=== PATIENT | male | born 1950 | race Caucasian/White ===

== ENCOUNTER → 2018-07-28 07:51 | Outpatient (CLI) | payer MEDICARE, BC | END | disposition home or self-care (01) | LOC: D.US 07:51 | DX: Z87.891 Personal history of nicotine dependence (principal) ==

== ENCOUNTER 2019-02-26 07:49 | Day surgery (SDC) | payer MEDICARE, BC ==
[2019-02-25 12:08] LABS: HEMATOCRIT 44.9 % (42.0-54.0); HEMOGLOBIN 15.9 g/dL (13.5-17.5); MCH 31.5 pg (26.0-34.0); MCHC 35.4 g/dL (31.0-37.0); MCV 88.9 fL (80.0-100.0); MEAN PLATELET VOLUME 9.8 fL (7.4-10.4); RBC 5.05 10x6/uL (4.20-6.10); RDW 12.5 % (11.5-14.5); WBC 9.4 10x3/uL (4.8-10.8)
[~2019-02-26] VITALS: Ht 180.3 cm; Wt 99.8 kg
[~2019-02-26 07:49] MED LIST: CYCLOBENZAPRINE10 MG PO; FLOMAX0.4 MG PO; HYDROCODON-ACE1 EA10 PO; PROSCAR5 MG PO
[2019-02-26 08:48] VITALS: BP 132/80; Ht 180.3 cm; Wt 99.8 kg
[2019-02-26] MEDS ORDERED: PERCOCET 10-321 EAC1 PO (12:02)
[2019-02-26] MEDS ORDERED: DURICEF500 MG PO (12:02)
--- NOTE | 2019-02-26 13:15 | OP ---
PATIENT NAME: IMTIAZ BAZAN MEDICAL RECORD: [id number] :51 LOCATION:[facility] ADMISSION DATE: SURGEON: PAVEL ESQUEDA DO DATE OF OPERATION: 02/26/2019 PROCEDURE PERFORMED: Right index and middle finger A1 petty release. PREOPERATIVE DIAGNOSIS: Trigger finger, right middle and index finger. POSTOPERATIVE DIAGNOSIS: Trigger finger, right middle and index finger. INDICATIONS: Mr. Bazan is a 69-year-old male who has had trigger fingers in the past. He has tried injections in the right index and middle finger to no avail. He is tired of dealing with them and wanted something done surgically. I informed him that we could do the release and he would be at risk for infection, bleeding, damage to nerves in the area of the vessels, need for further surgery, and he was okay with that and signed the consent. SURGEON: Pavel Esqueda DO DESCRIPTION OF PROCEDURE: The patient was taken to the operative suite, laid in supine position, given general anesthetic and 2 grams Ancef. Right upper extremity was prepped and draped in sterile fashion. Timeout was performed, everyone was in agreement of the correct side, site, patient and procedure. The right upper extremity was then exsanguinated with an Esmarch. Tourniquet was inflated to 250 mmHg, was up for 18 minutes. The incision was then made over the A1 petty of the long finger first. Careful dissection was made down after the incision through the skin bluntly with a Ragnell to the A1 petty. A1 petty was then released and the flexor tendons were pulled out through the incision, it was not binding on anything and no tenosynovitis. The same was repeated on the index finger and once we got good release, the tourniquet was let down. The bleeding was coagulated with the bipolar at that time. The incision was then closed with 4-0 nylon with a horizontal mattress fashion. Adaptic, 4 x 4's, Kerlix, and Coban were then placed on the hand lightly. He was awakened and taken to recovery in stable condition. BLOOD LOSS: Minimal. COMPLICATIONS: None. 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
== END 2019-02-26 13:40 | disposition home or self-care (01) ==
LOC: D.OPS 07:49 → D.PAN 10:00 → D.OPS 10:00
PROVIDERS: Anesthesiology; ATTEND Orthopaedic Surgery
DX: M65.321 Trigger finger, right index finger (principal); M65.331 Trigger finger, right middle finger; Z01.812 Encounter for preprocedural laboratory examination

== ENCOUNTER → 2020-01-18 10:15 | Outpatient (CLI) | payer MEDICARE, BC ==
[2019-02-26 08:48] VITALS: BMI 30.7
[~2020-01-18 10:15] MED LIST changes: +DURICEF500 MG PO; +PERCOCET 10-321 EAC1 PO
== END | disposition home or self-care (01) ==
LOC: D.MRI 10:15
PROVIDERS: ATTEND Orthopaedic Surgery
DX: M25.332 Other instability, left wrist (principal)

== ENCOUNTER 2020-02-04 08:10 | Day surgery (SDC) | payer MEDICARE, BC ==
[2020-02-03 09:11] LABS: HEMATOCRIT 45.5 % (42.0-54.0); HEMOGLOBIN 15.3 g/dL (13.5-17.5); MCH 30.8 pg (26.0-34.0); MCHC 33.6 g/dL (31.0-37.0); MCV 91.7 fL (80.0-100.0); MEAN PLATELET VOLUME 9.6 fL (7.4-10.4); RBC 4.96 10x6/uL (4.20-6.10); RDW 12.3 % (11.5-14.5); WBC 5.8 10x3/uL (4.8-10.8)
[~2020-02-04] VITALS: Ht 180.3 cm; Wt 104.3 kg
[2020-02-04 09:47] VITALS: BP 167/93; Ht 180.3 cm; Wt 104.3 kg
[2020-02-04] MEDS ORDERED: SUPER B COMPLE1 EAC1 PO (10:34)
[2020-02-04] MEDS ORDERED: OCUVITE (10:35)
[2020-02-04] MEDS ORDERED: CENTRUM MEN'S1 EACH PO (10:35)
--- NOTE | 2020-02-04 15:32 | NUR ---
C/O BACK PAIN AT RIGHT THORAX AND SHOULDER AT 5/10 UPON ARRIVAL, RX'D IN PACU. BY DISCHARGE RATED BACK PAIN AND KNEE PAIN AT 3/10 AND DECLINED ADDITIONAL PAIN MEDS. IV D/C'D WITH CANNULA INTACT. DISCHARGE INSTRUCTIONS GIVEN. VERBALIZED AN UNDERSTANDING.
--- NOTE | 2020-02-07 08:18 | OP ---
PATIENT NAME: IMTIAZ BAZAN MEDICAL RECORD: [id number] :52 LOCATION:[facility] ADMISSION DATE: SURGEON: PAVEL ESQUEDA DO DATE OF OPERATION: 02/04/2020 PROCEDURE PERFORMED: Left knee arthroscopy with partial medial and partial lateral meniscectomy. PREOPERATIVE DIAGNOSIS: Left knee medial meniscal tear. POSTOPERATIVE DIAGNOSES: Left knee medial meniscal tear with lateral meniscal tear. INDICATIONS: Mr. Bazan is a 70-year-old male who was in my office. We got x-rays of his knee, it did not show any arthritis. He had some catching, locking and some knee pain. He is tender along the medial joint line. got an MRI, which showed a medial meniscal tear quite extensive in the posterior horn of the medial meniscus. I informed him that we could trim this out and he would be a risk for increased advancement of the arthritis if he had any and then arthritis, even if he did not, taking out the meniscus. He is okay with that and wanted something done due to the pain. I informed him of the risks including infection, bleeding, damage to nerves and vessels, need for further surgery, continued pain, retear of the meniscus and need for further surgery and blood clots, and even and he signed the consent. SURGEON: Pavel Esqueda DO DESCRIPTION OF PROCEDURE: The patient was taken to the operative suite, laid in supine position. General anesthetic LMA was placed. He was given 2 grams Ancef preoperatively. The left lower extremity was then prepped and draped in sterile fashion. Timeout was performed. Everyone was agreeance with correct side, site, patient, the procedure. We then began by making the incision over the lateral portal on the anterior aspect of the knee. The trocar was then entered into the knee, then entered the camera and inspected the suprapatellar pouch and loose body was seen in the lateral gutter and medial gutter. We then flexed the knee down and established a medial portal with an 18-gauge spinal needle and 11-blade scalpel. A trocar was then entered in and then the probe. I then got to the posterior horn of the medial meniscus. There was a severe tear in it. I used a biter and a shaver to trim it out, back to stable point, and then used a probe to ensure that it would hopefully not tearing it more, then inspected the ACL, it was in good position and then [id number]'d the knee and saw there was a small tear in the most inner aspect of the middle part of the lateral meniscus. I trimmed that out with a biter and shaver and then inspected the patellofemoral joint and it was in good repair. The medial and lateral joints were also in pretty good shape. 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 I then turned the suction on, the water off and the excess fluid was removed from the knee. Kevin Flanagan, certified midwife, then closed the portal sites with 4-0 Monocryl in inverted interrupted fashion and then injected each of the portal sites with about 5 mL of 0.25% Marcaine with epinephrine. I then dressed it with Steri-Strips, Adaptic, 4 x 4's, ABD, Webril, Gaurav wrap and JAMES hose stocking up to the knee. He was then awakened and taken to recovery in stable condition. OPERATIVE REPORT [id number] IMTIAZ BAZAN BLOOD LOSS: Minimal. COMPLICATIONS: None. TRANSINT:[id number] Voice Confirmation ID: [id number] DOCUMENT ID: [id number] PAVEL ESQUEDA DO at 0818 CC: [id number] DICTATION DATE: 02/04/20 1320 [employer] ADJUSTER: 02/05/20 0052 [facility] 02/04/20 [place] [id number] [place] [id number]
== END 2020-02-04 14:50 | disposition home or self-care (01) ==
LOC: D.OPS 08:10 → D.PAN 09:30 → D.OPS 09:30 → D.PAN 10:00 → D.OPS 10:00 → D.PAN 12:00 → D.OPS 14:50
PROVIDERS: Anesthesiology; ATTEND Orthopaedic Surgery
DX: S83.242A Other tear of medial meniscus, current injury, left knee, initial encounter (principal); S83.282A Other tear of lateral meniscus, current injury, left knee, initial encounter; X58.XXXA Exposure to other specified factors, initial encounter

== ENCOUNTER → 2020-02-29 12:52 | Outpatient (CLI) | payer MEDICARE, BC ==
[2020-02-04 09:47] VITALS: BMI 32.1
[~2020-02-29 12:52] MED LIST changes: +CENTRUM MEN'S1 EACH PO; +OCUVITE; +SUPER B COMPLE1 EAC1 PO
== END | disposition home or self-care (01) ==
LOC: D.US 12:52
PROVIDERS: ATTEND Orthopaedic Surgery
DX: R60.0 Localized edema (principal)